=== PATIENT | female | born 1955 | race Caucasian/White ===

== ENCOUNTER 2019-04-17 17:03 | Emergency (ER) | payer MEDICAID, OTHER ==
[~2019-04-17] VITALS: Ht 167.6 cm; Wt 172.0 kg
[~2019-04-17 17:03] MED LIST: IBUP200T49 PO; METO25TA35 PO
[2019-04-17 17:08] VITALS: BP 153/81
--- NOTE | 2019-04-17 17:32 | NUR ---
CYBER SECURITY: PT TO ROOM FROM LOBBY
--- NOTE | 2019-04-17 17:45 | NUR ---
THIS IS A 63 YO F W/ C/O ABCESS ON RIGHT UPPER POSTERIOR LEG X1 WEEK. STATES HER DAUGHTER HAS BEEN DRESSING IT WITH ANTIBACTERIAL CREAM AND THERE HAS BEEN NO IMPROVEMENT. PATIENT IS SITTING IN WHEELCHAIR REFUSING TO SIT ON GURNEY OR PUT GOWN ON. FAMILY AT BEDSIDE. DENIES FURTHER NEEDS AT THIS TIME.
[2019-04-17] MEDS ORDERED: CEFTRIAXONE 1,000 MG IM ONE (18:00)
--- NOTE | 2019-04-17 18:06 | NUR ---
FSBS 89
[2019-04-17] MEDS ORDERED: CEFTRIAXONE 1,000 MG ONE (18:11)
[2019-04-17] MEDS ORDERED: LIDOCAINE-MPF 1%, 2ML ONE ×2 (18:11→18:13)
[2019-04-17] MEDS ORDERED: HYDROcodone/APAP 5/325 TABLET ONE (18:16)
[2019-04-17 18:22] LABS: BASOPHILS # (AUTO) 0.01 x10^3/uL (0-0.1); BASOPHILS % (AUTO) 0 % (0-1); EOSINOPHILS # (AUTO) 0.12 x10^3/uL (0-0.4); EOSINOPHILS % (AUTO) 2 % (1-7); LYMPHOCYTES # (AUTO) 1.43 x10^3/uL (1-3.4); LYMPHOCYTES % (AUTO) 20 % (22-44); MD NO; MEAN CORPUSCULAR HEMOGLOBIN 30.7 pg (27.0-34.8); MEAN CORPUSCULAR HGB CONC 33.2 g/dL (32.4-35.8); MEAN CORPUSCULAR VOLUME 92.6 fL (80-100); MEAN PLATELET VOLUME 8.9 fL (7.4-10.4); MONOCYTES # (AUTO) 0.03 x10^3/uL (0.2-0.8); MONOCYTES % (AUTO) 1 % (2-9); NEUTROPHILS # (AUTO) 5.55 x10^3/uL (1.8-6.8); NEUTROPHILS % (AUTO) 78 % (42-75); PLATELET COUNT 356 x10^3/uL (130-400); RED BLOOD COUNT 3.89 x10^6/uL (3.82-5.3); RED CELL DISTRIBUTION WIDTH 13.4 % (9.6-15.2)
[2019-04-17] MEDS ORDERED: HYDROcodone/APAP 5/325 TABLET PO ONE (18:30)
[2019-04-17 18:32] LABS: ALBUMIN 3.4 g/dL (3.4-5.0); ANION GAP 6 mmol/L (5-15); CALCIUM 8.8 mg/dL (8.5-10.1); CHLORIDE 113 mmol/L (98-107); CREATININE 0.76 mg/dL (0.55-1.02)
== END 2019-04-17 19:14 | disposition home or self-care (01) ==
LOC: ED 18:55
DX: L03.115 Cellulitis of right lower limb (principal); I10 Essential (primary) hypertension; G89.29 Other chronic pain
CPT/HCPCS: 80048; 82040; 82962; 85025; 96372; 99283; J0696